=== PATIENT | male | born 1955 ===

== ENCOUNTER 2017-09-03 08:51 | Outpatient (CLI) | payer OTHER | END 2017-09-03 10:00 | disposition home or self-care (01) | LOC: NUCLEAR 08:51 | DX: E11.621 Type 2 diabetes mellitus with foot ulcer (principal); I73.9 Peripheral vascular disease, unspecified ==

== ENCOUNTER → 2017-09-04 | Outpatient (CLI) | payer OTHER | END | disposition home or self-care (01) | LOC: NUCLEAR 09:21 | DX: E11.621 Type 2 diabetes mellitus with foot ulcer (principal); I87.2 Venous insufficiency (chronic) (peripheral) ==